=== PATIENT | female | born 1940 | race Caucasian/White ===

== ENCOUNTER 2024-05-24 19:36 | Emergency (ER) | payer MEDICARE, OTHER | END 2024-05-24 21:03 | disposition home or self-care (01) | LOC: JP.ED 19:36 | DX: S10.93XA Contusion of unspecified part of neck, initial encounter (principal); S00.93XA Contusion of unspecified part of head, initial encounter; Z79.899 Other long term (current) drug therapy; W18.2XXA Fall in (into) shower or empty bathtub, initial encounter; W22.8XXA Striking against or struck by other objects, initial encounter | CPT/HCPCS: 99283 ==